=== PATIENT | female | born 1980 ===

== ENCOUNTER 2017-01-04 05:52 | Day surgery (SDC) | payer OTHER ==
--- NOTE | 2016-12-31 18:29 | GHP ---
[f rep st] PREOP HISTORY AND PHYSICAL PLANNED PROCEDURES: Hysteroscopy with morcellation of endometrial tissue and endometrial ablation. INDICATIONS: Patient is a 36-year-old, 2, para 2-0-0-2, who initially presented to her primary care doctor in June because she felt anemic. She was diagnosed with anemia and started Bifera, which she has taken regularly. Last week, patient got winded and dizzy while walking in from the parking. She checked her hematocrit and it was 29.1. The patient's family status is complete. She has had a section x2. The patient's states her periods are super heavy for 5 days. She passes clots and cramps. She saturates a super plus tampon every 1-2 hours and then has one day that is light followed by another 2 additional super heavy days, and then spots. The patient has had a tubal ligation. Her family status is complete. We discussed management options of hormone management versus hysteroscopy with morcellation of endometrial tissue and an endometrial ablation versus hysterectomy. The patient is too busy right now to have a hysterectomy. She would like to try to do the endometrial ablation. We talked about the recommendations for doing an endometrial biopsy in the office. The patient declines due to potential discomfort. She is aware that if she has abnormal pathology on her biopsy at the time of surgery, she will need to have a hysterectomy. Risks and benefits have been extensively reviewed with the patient. The patient then been properly consented. PAST MEDICAL HISTORY: 1. Menorrhagia. 2. Anemia secondary to #1. MEDICATIONS: Iron. PAST SURGICAL HISTORY: 1. section x2. 2. Tubal ligation. ALLERGIES: No known drug allergies. SOCIAL HISTORY: Patient is . Denies tobacco, alcohol, or drug use. FAMILY MEDICAL HISTORY: Noncontributory. [employer] HISTORY: Menarche age 12. Periods every 21-27 days, lasting 7-9 days. They are very heavy and crampy. She is a 2, para 2-0-0-2. She has had 2 sections. The second one, she had a tubal ligation. The patient denies any history of any abnormal Pap smears or sexually transmitted diseases. REVIEW OF SYSTEMS: 10-point review of systems is negative with the exception of the abovementioned pertinent positives of menorrhagia, shortness of breath, occasional dizziness and fatigue due to anemia. PHYSICAL EXAMINATION: VITAL SIGNS: Stable. GENERAL APPEARANCE: Alert and oriented x3. HEART: Her heart rate is irregularly regular. LUNGS: Clear to auscultation bilaterally. ABDOMEN: Soft, nondistended, nontender. EXTREMITIES : No calf tenderness or edema. PELVIC: Mobile midposition uterus with no adnexal masses. IMAGING: Pelvic ultrasound showed a uterus measuring 9 x 5.2 x 5.59 cm with an endometrium of 0.53 cm. Her adnexa are unremarkable. ASSESSMENT AND PLAN: A 36-year-old, 2, para 2-0-0-2, whose family status is complete, has a diagnosis of menorrhagia and symptomatic anemia secondary to menorrhagia. The patient is electing to proceed with a hysteroscopy with morcellation of endometrial tissue and an endometrial ablation. Risks and benefits have been extensively reviewed with the patient. Patient has been properly consented. /[id number]/MODL MTDD
[2017-01-04] MEDS ORDERED: LIDOCAINE 1% 2 ML INJ ID PRN (06:01)
[2017-01-04] MEDS ORDERED: LR 1,000 ML IV ONE (06:01)
[2017-01-04] MEDS ORDERED: DOXYCYCLINE INJ 100 MG in NS 250 ML IV ONE (06:30)
[2017-01-04] MEDS ORDERED: SILVER NITRATE APPLICATOR 1 APPL TP ONE (07:02)
[2017-01-04] MEDS ORDERED: PROPOFOL/EMULSION 500 MG/50 ML BOTTLE IV ONE (07:19)
[2017-01-04] MEDS ORDERED: MIDAZOLAM 2 MG/2 ML VIAL ONE (07:19)
[2017-01-04] MEDS ORDERED: fentaNYL 100 MCG/2 ML INJ ONE ×2 (07:19→08:47)
--- NOTE | 2017-01-04 07:29 | PDHPUP ---
History & Physical Update H&P update statement: This history and physical update is based on an assessment of the patient which was completed after admission or registration (within 24 hours), but prior to the surgery/procedure. H&P update: H&P reviewed & patient examined, no change in patient's condition since H&P completed
[2017-01-04 07:30] LABS: % IMMATURE GRANULYOCYTES 0.3 % (0.0-1.1); ABSOLUTE IMMATURE GRANULOCYTES 0.02 10^3/uL (0.00-0.10); ADD DIFF? NO; ADD MORPH? YES; ADD SCAN? NO; ATYPICAL LYMPHOCYTE FLAG 10 (0-99); FRAGMENT RBC FLAG 40 (0-99); HEMATOCRIT 29.2 % (38.0-47.0); HEMOGLOBIN 8.4 g/dL (12.6-16.3); LEFT SHIFT FLG 0 (0-99); LIPEMIA HEMOLYSIS FLAG 70 (0-99); PLATELET CLUMPS FLAG 0 (0-99); PLATELET COUNT 438 10^3/uL (150-400); RED BLOOD CELL COUNT 4.21 10^6/uL (4.18-5.33)
[2017-01-04 07:35] LABS: MEAN CELL HEMOGLOBIN CONCENTR. 28.8 g/dL (32.4-36.7); MEAN CELL VOLUME 69.4 fL (81.5-99.8)
[2017-01-04] MEDS ORDERED: ONDANSETRON 4 MG/2 ML VIAL ONE ×2 (07:41→09:01)
[2017-01-04] MEDS ORDERED: METOCLOPRAMIDE 10 MG/2 ML VIAL ONE (07:41)
[2017-01-04] MEDS ORDERED: LIDOCAINE 2% 5 ML SDV ONE (07:41)
[2017-01-04] MEDS ORDERED: KETOROLAC 30 MG/1 ML SDV ONE (07:41)
[2017-01-04] MEDS ORDERED: DEXAMETHASONE 4 MG/ML VIAL ONE (07:41)
[2017-01-04 07:53] LABS: ELLIPTOCYTES 1+; HYPOCHROMIA 2+; MICROCYTES 2+; PLATELET ESTIMATE ADEQUATE (ADEQ); POLYCHROMASIA 1+
--- NOTE | 2017-01-04 08:00 | PDANEPAE ---
ANE Past Medical History - Cardiovascular History Hx Hypertension: No Hx Arrhythmias: No Hx Chest Pain: No Hx Coronary Artery / Peripheral Vascular Disease: No Hx CHF / Valvular Disease: No Hx Palpitations: No Cardiovascular History Comment: takes Iron due to anemia. Hgb 8.0. - Pulmonary History Hx COPD: No Hx Asthma/Reactive Airway Disease: No Hx Recent Upper Respiratory Infection: No Hx Oxygen in Use at Home: No Hx Sleep Apnea: No Sleep Apnea Screening Result - Last Documented: Negative - Neurologic History Hx Cerebrovascular Accident: No Hx Seizures: No Hx Dementia: No - Endocrine History Hx Diabetes: No - Renal History Hx Renal Disorders: No - Liver History Hx Hepatic Disorders: No - Neurological & Psychiatric Hx Hx Neurological and Psychiatric Disorders: No - Cancer History Hx Cancer: No - Congenital Disorder History Hx Congenital Disorders: No - GI History Hx Gastrointestinal Disorders: No - Other Health History Other Health History: heavy menses- - Chronic Pain History Chronic Pain: No - Surgical History Prior Surgeries: C sections 2001,2011 ANE Review of Systems Review of Systems: - Exercise capacity METS (RN): 4 METS ANE Patient History - Allergies Allergies/Adverse Reactions: No Known Allergies Allergy (Verified 11/26/16 13:55) - Home Medications Home Medications: IRON 11/26/16 [Last Taken 01/02/17] - NPO status NPO Since - Liquids (Date): 01/03/17 NPO Since - Liquids (Time): 20:00 NPO Since - Solids (Date): 01/03/17 NPO Since - Solids (Time): 20:00 - Smoking Hx Smoking Status: Never smoked ANE Labs/Vital Signs - Labs Result Diagrams: 01/04/17 06:45 - Vital Signs Blood Pressure: 106/69 Heart Rate: 78 Respiratory Rate: 16 O2 Sat (%): 98 Height: 165.1 cm Weight: 90.718 kg ANE Physical Exam - Airway Neck exam: FROM Mallampati Score: Class 1 Mouth exam: normal dental/mouth exam - Pulmonary Pulmonary: no respiratory distress, no rales or rhonchi, clear to auscultation - Cardiovascular Cardiovascular: regular rate and rhythym, no murmur, rub, or gallop, pulses symmetric bilaterally - ASA Status ASA Status: II ANE Anesthesia Plan Anesthesia Plan: GA w LMA
[2017-01-04] MEDS ORDERED: LR 500 ML IV PRN (08:01)
[2017-01-04] MEDS ORDERED: OXYCODONE/APAP 5/325 TAB PO PRN (08:01)
[2017-01-04] MEDS ORDERED: DEXAMETHASONE 4 MG/ML VIAL IVP PRN (08:01)
[2017-01-04] MEDS ORDERED: NALOXONE HCL 0.4 MG/ML INJ IVP PRN (08:01)
[2017-01-04] MEDS ORDERED: HYDROCODONE/APAP 5/325 TAB PO PRN (08:01)
[2017-01-04] MEDS ORDERED: MEPERIDINE 25 MG/ML SYR IVP PRN (08:01)
[2017-01-04] MEDS ORDERED: ONDANSETRON 4 MG/2 ML VIAL IVP PRN (08:01)
[2017-01-04] MEDS ORDERED: METOCLOPRAMIDE 10 MG/2 ML VIAL IVP PRN (08:01)
[2017-01-04] MEDS ORDERED: PROMETHAZINE HCL 25 MG/ML INJ IVP PRN (08:01)
[2017-01-04] MEDS ORDERED: ACETAMINOPHEN 500 MG TAB PO PRN (08:01)
[2017-01-04] MEDS ORDERED: ALBUTEROL 3 ML DEYVIAL IH PRN (08:01)
[2017-01-04] MEDS: fentaNYL 100 MCG/2 ML INJ IVP PRN ×2 (08:48→08:53)
--- NOTE | 2017-01-04 09:08 | POSTANESTH ---
Post Anesthetic Evaluation Cardiovascular Status: Normal, Stable Respiratory Status: Normal, Stable Level of Consciousness/Mental Status: Can Participate in Eval, Mildly Sleepy, Arousable Pain Control: Adequate, Prn Tx Ordered Nausea/Vomiting Control: Adequate, Prn Tx Ordered Complications Possibly Related to Anesthesia: None Noted
[2017-01-04 09:35] VITALS: TEMP 97
--- NOTE | 2017-01-04 09:35 | GOP ---
[f rep st] OPERATIVE REPORT DATE OF OPERATION: 01/04/2017 SURGEON: Diya Wiggins DO ANESTHESIA: General with LMA. ANESTHESIOLOGIST: Idalmis Trinidad. PREOPERATIVE DIAGNOSIS: Menorrhagia and symptomatic anemia. POSTOPERATIVE DIAGNOSIS: Menorrhagia and symptomatic anemia. PROCEDURE PERFORMED: Hysteroscopy with morcellation of endometrial tissue and endometrial ablation. FINDINGS: 1. Thickened endometrial lining with possible polyp. 2. Hysteroscopy of diffusely ablated endometrial cavity. SPECIMENS: Endometrial curettings. ESTIMATED BLOOD LOSS: 10 cc. INDICATIONS: The patient is a 36-year-old 2, para 2-0-0-2 who has had progressively worsenin g symptomatic anemia secondary to heavy menses. The patient's family status is complete. She has ma d section x2. She says her periods are super heavy for 5 days. She passes lots of clots an d cramps. Management options were reviewed with the patient, and the patient elected to proceed with a hysteroscopy with morcellation of endometrial tissue and endometrial ablation. Risks and benefits of the procedure were reviewed with the patient. The patient was properly consented DESCRIPTION OF PROCEDURE: The patient was taken to the operating room with intravenous fluids in arnav ce. She was then placed on the operating room table, where general anesthesia with LMA was obtained. She was given 100 mg of doxycycline intravenously. She was then placed in the dorsal lithotomy pos ition, with the Yellofin stirrups, and prepped and draped in normal sterile fashion. Exam under anes thesia revealed a mobile, midposition uterus, which was well suspended. No adnexal masses are noted. An Allis clamp was used to grasp the anterior lip of the cervix. The cervix was then carefully dil ated to allow for the introduction of an operative hysteroscope. The hysteroscope was introduced wit h fluid medium running. Bilateral tubal ostia were visualized. No obvious fibroids were noted. A p ossible polyp in a thickened endometrium posteriorly was noted. The morcellator was then introduced, and a circumferential morcellation was performed, revealing no other abnormalities of the uterine ca vity. The uterus sounded to 9 cm after the hysteroscope was withdrawn, and the cervical length was 3 .5 cm. The Moon apparatus was then introduced, and the endometrial ablation was performed after t he cavity assessment passed. The Moon was then withdrawn, and the hysteroscope was then reintrodu mirna, and a diffusely ablated endometrial cavity was noted. Instruments were then removed from the pa tient's vagina. No bleeding was noted. The patient was returned to the dorsal supine position, wher e she was easily awoken from anesthesia. Sponge count was correct. The patient was transferred to r ecovery room in stable condition. /[id number]/MODL
[2017-01-04] MEDS ORDERED: ACETAMINOPHEN 500 MG TAB ONE (09:39)
[2017-01-04 09:42] VITALS: O2SAT 99
[2017-01-04 10:08] VITALS: BP 124/84; PULSE 69; RESP 18
== END 2017-01-04 10:08 | disposition home or self-care (01) ==
LOC: FSGY 05:52
PROVIDERS: ATTEND Obstetrics & Gynecology
DX: N92.0 Excessive and frequent menstruation with regular cycle (principal); D50.0 Iron deficiency anemia secondary to blood loss (chronic)
CPT/HCPCS: 58563; C1782; J1100; J1885; J2250; J2405; J2704; J2765; J3010